=== PATIENT | female | born 2000 | race Caucasian/White ===

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

== ENCOUNTER 2019-01-13 18:39 | Emergency (ER) | payer SELFPAY ==
--- OUTSIDE RECORDS SUMMARY | 2019-01-13 18:53 | XMS REPORT | Continuity of Care Document ---
:2000 Author Organization [facility] Address [address], [place] [id number] Phone Care Team Providers Name Role Phone Catalina Burgess NP Unavailable Unavailable Allergies, Adverse Reactions, Alerts Substance Reaction Status No Known Allergies Active Medications Medication Instructions Dosage Effective Dates Status Comments (start - stop) Depo-Provera 150 IM Q 11-13 weeks - Active mg/mL intramuscular suspension DEPO-PROVERA Not Available - No Longer (unknown strength) Active Problems Condition Effective Dates (start - Clinical Status Comments stop) Encounter for oth general cnsl and - advice on contraception Human immunodeficiency virus [HIV] - counseling Encounter for test, result negative Encntr screen for infections w sexl mode of transmiss Encounter for initial prescription of injectable contracep Procedures Procedure Date PREVENTIVE COUNSELING, Under 8 Minutes URINE TEST N.GONORRHOEAE, DNA, AMP PROB CHYLMD DNA, AMP PROBE OFFICE/OUTPATIENT VISIT, NEW INJECTION DEPO/CEFTRIAXONE BLOOD PRESSURE Height/Weight OTHER Medical Services Contraceptive Director Audience Marketing.Svc. Other Director Audience Marketing.Svc. STI DEPO Results Test Name Date and Time Measure Units Reference Range Abnormal Flag Status Comments Panel Description: C trach DNA XXX Ql PCR Final Urine CT/GC Negative N Final Performed Combo - CT 00:00:00 by:
&emsp;&ensp;CDD ([id number])

Panel Description: Amplified GC - Urine Final Urine CT/GC Negative N Final : No

Performed Combo - GC 00:00:00 by:
&emsp;&ensp;CDD ([id number])

Panel Description: High Sensitivity Urine Test Final High Sensitivity Urine 13:18:20 NegativeInternal Quality Final Test Control: Positive Advance Directives Directive Yes / No Effective Date File Name No information Encounters Encounter Practice Location Reason(s) Diagnoses Date Provider Providers Description For Visit Copied on Encounter OFFICE/OUTPA [facility] Referring TIENT VISIT, [facility] [place] Control immunodeficiency . Provider: [facility] Consult virus [HIV] [address] (chief counselingEncounter [facility], [facility], [address]) for oth general [address], [address] [place] cnsl and advice on [place], [address], [place], [place], [place], [place], [place] [address]. [place], [address]. [id number], test, result tel:+ tel:+60 negativeEncntr [id number] tel:+ screen for [id number] infections w sexl mode of transmissEncounter for initial prescription of injectable contracep Family History Family Member Diagnosis Age At Onset 1st degree relative No hx of venous thromboembolism 1st degree relative No hx of cancer of breast, colon, endometrium or ovary 1st degree relative No hx of coronary heart disease (female <65, male <55) 1st degree relative No hx of osteoporosis Immunizations Vaccine Date Status Comments No information Payers Payer name Insurance type Covered republican ID Authorization(s) FPBP PRESUMPTIVE ELIGIBILITY [id number] Social History Type Description Quantity Date Captured Comments Alcohol Use Details Unknown Caffeine Use Details Unknown Tobacco Use Status Current non-smoker Smoking Status Never smoker Non-Smoking Tobacco : No Details Available : No Details Available 2018 Use Details Sex Female Vital Signs Date / Height Weight BMI Pulse Blood Temperature Respiratory Body Head BMI Pulse Inhaled Time: Rate Pressure Rate Surface Circumference percentile Ox Ox Area 64.00 172.00 29.5 110/72 in lbs 2 mm[Hg] 1:05 kg/m PM eter (2) Chief Complaint And Reason For Visit Most recent encounter only, dated '11/28/2018 12:50'. Control Consult (chief complaint) Reason For Referral Reason For Referral No information Plan Of Treatment Date Type Action Status No information History Of Present Illness Encounter Date Complaint History Of Present Illness No information Functional Status Date Functional Assessment No information Medications Administered Medication Instructions Dosage Effective Dates (start - stop) Status Comments No information Instructions Date Instruction Additional Information No information Assessments Type Assessment Date assessment Human immunodeficiency virus [HIV] counseling assessment Encounter for oth general cnsl and advice on contraception 2018 assessment Encounter for test, result negative assessment Encntr screen for infections w sexl mode of transmiss assessment Encounter for initial prescription of injectable contracep 2018 Goals Health Concern Goal Type Priority Status Date No information Medical Equipment Description Device [place] Device Identifier Effective Dates (start - stop ) Status No information Mental Status Date Cognitive Assessment No information Health Concerns Observation Date No information Concern Status Date No information
--- NOTE | 2019-01-13 21:23 | ED ---
GI/ HPI - HPI Summary HPI Summary: The patient is a 18 y/o F presenting to [facility] with a chief complaint of dysuria for the last 6 months accompanied by constant suprapubic pain. She reports that two years ago she had a UTI that was treated with OTC medications, and her symptoms resolved. Then six months ago, her symptoms returned with pain with urination and abdominal pain. She did not see anyone for her symptoms, but they have been worsening since then. Currently, her symptoms are rated 7/10 in severity. She denies any fever, chills, nausea, vomiting, vaginal bleeding or discharge, or change in stool. LNMP: one year ago (on Depo shot, hasn't missed any doses). No PMHx. Nonsmoker, no EtOH, no substance use. Medications reviewed. Allergies noted. - History of Current Complaint Chief Complaint: EDUrogenitalProblems Time Seen by Provider: 01/13/19 21:15 Stated Complaint: STOMACH PAINS PER PT Hx Obtained From: Patient Hx Last Menstrual Period: one year ago (Depo shot) Onset/Duration: Started Weeks Ago - 6 months, Still Present Timing: Constant, Lasting Weeks - 6 months Severity: Moderate Current Severity: Severe Pain Intensity: 7 Location of Pain: Suprapubic Pain Characteristics: Sharp Associated Signs and Symptoms: Positive: Dysuria, Abdominal Pain - suprapubic, Other: - Negative: change in stool. Negative: Nausea, Vomiting, Fever, Chills Additional Signs & Symptoms: Negative: Vaginal Bleeding, Vaginal Discharge Aggravating Factor(s): Nothing Alleviating Factor(s): Nothing - Allergy/Home Medications Allergies/Adverse Reactions: Allergies Allergy/AdvReac Type Severity Reaction Status Date / Time No Known Allergies Allergy Verified 01/13/19 18:44 PMH/Surg Hx/FS Hx/Imm Hx Respiratory History: Denies: Hx Asthma History: Reports: Other Problems/Disorders - recurrent UTIs Sensory History: Denies: Hx Deafness Opthamlomology History: Denies: Hx Legally Blind EENT History: Denies: Hx Deafness - Surgical History Surgical History: None Surgery Procedure, Year, and Place: none Infectious Disease History: No Infectious Disease History: Denies: Traveled Outside the [place] in Last 30 Days - Family History Known Family History: Negative: Hypertension, Diabetes - Social History Alcohol Use: None Hx Substance Use: No Substance Use Type: Reports: None Hx Tobacco Use: No Smoking Status (MU): Never Smoked Tobacco Review of Systems Negative: Fever, Chills Positive: Abdominal Pain - suprapubic. Negative: Vomiting, Nausea Positive: dysuria, other - Negative: vaginal bleeding. Negative: discharge All Other Systems Reviewed And Are Negative: Yes Physical Exam - Summary Physical Exam Summary: Appearance: Well-appearing, Well-nourished, lying in bed comfortably Skin: Warm, dry, no obvious rash Eyes: sclera anicteric, no conjunctival pallor ENT: mucous membranes moist, pharynx appears normal Neck: Supple, nontender Respiratory: Clear to auscultation, no signs of respiratory distress Cardiovascular: Normal S1, S2. No murmurs. Normal distal pulses in tibial and radial bilaterally. Abdomen: Soft, nontender, normal active bowel sounds present Musculoskeletal: Normal, Strength/ROM Intact Neurological: A&Ox3, awake and alert, mentation is normal, speech is fluent and appropriate Psychiatric: affect is normal, does not appear anxious or depressed Triage Information Reviewed: Yes Vital Signs On Initial Exam: Initial Vitals Temp Pulse Resp BP Pulse Ox 99.8 F 89 16 120/83 98 01/13/19 18:42 01/13/19 18:42 01/13/19 18:42 01/13/19 18:42 01/13/19 18:42 Vital Signs Reviewed: Yes Diagnostics - Vital Signs Vital Signs Temp Pulse Resp BP Pulse Ox 01/13/19 21:02 81 99 01/13/19 21:01 78 117/90 99 01/13/19 20:54 100.2 F 16 01/13/19 18:42 99.8 F 89 16 120/83 98 - Laboratory Result Diagrams: 01/13/19 21:33 01/13/19 21:33 Lab Statement: Any lab studies that have been ordered have been reviewed, and results considered in the medical decision making process. - Ultrasound Transvaginal US Ultrasound Interpretation Completed By: Radiologist Summary of Ultrasound Findings: Impression: Negative pelvic sonogram. Normal bilateral ovarian blood flow is noted. ED physician has reviewed this report. Re-Evaluation - Re-Evaluation First Eval Re-Evaluation Time: 23:35 Comment: We discussed all results and plan for discharge home. GIGU Course/Dx - Course Course Of Treatment: Pt is a 18 y/o F with cc of dysuria and suprapubic pain beginning 6 months ago with dx of UTI last 2 years ago with OTC medication treatment without any treatment since onset. Denies fevers, chills, vaginal bleeding or discharge, change in stool, nausea, or vomiting. Upon physical exam , the pt exhibits no acute abnormalities. Blood work without significant abnormalities. UA consistent with infection with 1+ blood, 2+ leukocyte esterase , 3+ WBCs, and presence of squamous epithelial cells. In the ED course, the pt was administered Bactrim to start course to treat dx of UTI. Transvaginal US impression is negative. We discussed all results and plan for discharge with rx for Bactrim and [facility]. She understands and agrees with this plan. Dx of UTI and chronic pelvic pain. - Diagnoses Provider Diagnoses: UTI (urinary tract infection), Chronic pelvic pain in female Discharge ED - Sign-Out/Discharge Documenting (check all that apply): Patient Departure - Patient will be discharged home. Patient Received Moderate/Deep Sedation with Procedure: No - Discharge Plan Condition: Stable Disposition: HOME Prescriptions: Sulfamethox/Trimethoprim DS* [Bactrim DS 800/160 TAB*] 1 tab PO BID #20 tab Patient Education Materials: Urinary Tract Infection in Women (ED), Pelvic Pain in Women (ED) Referrals: [facility] [Outside] - 1 Week - Billing Disposition and Condition Condition: STABLE Disposition: Home - Attestation Statements Document Initiated by Marco A: Yes Documenting Scribe: Nancy Martinez Provider For Whom Marco A is Documenting (Include Credential): Dr. Eduardo Hyman MD Scribe Attestation: Nancy Mistry scribed for Dr. Eduardo Hyman MD on 01/15/19 at 0458. Scribe Documentation Reviewed: Yes Provider Attestation: The documentation as recorded by the Nancy arias accurately reflects the service I personally performed and the decisions made by me, Dr. Eduardo Hyman MD Status of Scrpenny Document: Viewed
[2019-01-13 21:24] LABS: Urine Appearance Cloudy; Urine Bacteria Absent (Absent); Urine Bilirubin Negative (Negative); Urine Blood 1+ (Negative); Urine Color Yellow; Urine Glucose Negative (Negative); Urine Ketones Negative (Negative); Urine Nitrite Negative (Negative); Urine Protein Negative (Negative); Urine Red Blood Cell Trace(0-2/hpf) (Absent); Urine Specific Gravity 1.025 (1.010-1.030); Urine Squamous Epithelial Cell Present (Absent); Urine Urobilinogen Negative (Negative); Urine White Blood Cell 3+(>20/hpf) (Absent)
[2019-01-13 21:47] LABS: ABS Basophils 0.1 10^3/ul (0-0.2); ABS Eosinophils 0.2 10^3/ul (0-0.6); ABS Lymphocytes 3.2 10^3/ul (1.0-4.8); ABS Neutrophils 4.2 10^3/ul (1.5-7.7); Eosinophil % 2.1 %; Hematocrit 40 % (35-47); Hemoglobin 13.4 g/dL (12.0-16.0); Lymphocyte % 37.4 %; Mean Corpuscular HGB Conc 34 g/dL (31-36); Mean Corpuscular Hemoglobin 29 pg (27-31); Mean Corpuscular Volume 87 fL (80-97); Mean Platelet Volume 8.4 fL (7.4-10.4); Nucleated Red Blood Cells % 0.1; Platelet Count 339 10^3/uL (150-450); Red Blood Count 4.56 10^6 /uL (3.70-4.87); Red Cell Distribution Width 14 % (10-15); White Blood Count 8.6 10^3/uL (3.5-10.8)
[2019-01-13 22:03] LABS: ALT 15 U/L (7-52); AST 15 U/L (13-39); Albumin 4.3 g/dL (3.2-5.2); Albumin/Globulin Ratio 1.7 (1-3); Alkaline Phosphatase 56 U/L (34-104); Anion Gap 5 mmol/L (2-11); BUN/Creatinine Ratio 11.6 (8-20); Blood Urea Nitrogen 11 mg/dL (6-24); CO2 Carbon Dioxide 26 mmol/L (22-32); Chloride 107 mmol/L (101-111); EGFR African American 91.7 (>60); EGFR Non-African American 75.8 (>60); Globulin 2.6 g/dL (2-4); Glucose 91 mg/dL (70-100); Potassium 3.5 mmol/L (3.5-5.0); Sodium 138 mmol/L (135-145); Total Protein 6.9 g/dL (6.4-8.9)
[2019-01-13 22:10] LABS: HCG Pregnancy < 0.60 mIU/mL
[2019-01-13] MEDS ORDERED: Sulfamethox/Trimethoprim DS 800/160* TAB PO ONE (22:39)
[2019-01-13 23:48] VITALS: BP 112/79
[2019-01-15 13:32] LABS: Chlamydia trachomatis NAA Negative (Negative); Neisseria gonorrhoeae (GC) NAA Negative (Negative)
--- NOTE | 2019-01-16 05:44 | PN ---
Progress Note - Progress Note Date of Service: 01/13/19 Note: Urine culture final grew Escherichia coli 50-75,000 Patient was placed on Bactrim prior to discharge This is sensitive to organism Nothing further at this time
== END 2019-01-13 23:45 | disposition home or self-care (01) ==
LOC: ED 18:39
DX: N39.0 Urinary tract infection, site not specified (principal); R10.2 Pelvic and perineal pain; G89.29 Other chronic pain
CPT/HCPCS: 36415; 76830; 80053; 81003; 81015; 84702; 85025; 87077; 87086; 87186; 87491; 87591; 99283; A9270-GY

== ENCOUNTER 2020-05-21 00:37 | Inpatient (IN) ==
[2020-05-21] MEDS: Lactated Ringers 1000 ml BAG 1,000 ML IV ONE ×3 (02:32→05:33)
[2020-05-21 02:51] LABS: ABS Basophils 0.1 10^3/ul (0-0.2); ABS Eosinophils 0.1 10^3/ul (0-0.6); ABS Lymphocytes 2.3 10^3/ul (1.0-4.8); ABS Monocytes 1.2 10^3/ul (0-0.8); ABS Neutrophils 11.4 10^3/ul (1.5-7.7); Eosinophil % 0.5 %; Hematocrit 33 % (35-47); Hemoglobin 10.7 g/dL (12.0-16.0); Lymphocyte % 15.5 %; Mean Corpuscular HGB Conc 33 g/dL (31-36); Mean Corpuscular Hemoglobin 27 pg (27-31); Mean Corpuscular Volume 82 fL (80-97); Mean Platelet Volume 9.6 fL (7.4-10.4); Platelet Count 335 10^3/uL (150-450); Red Blood Count 3.99 10^6 /uL (3.70-4.87); Red Cell Distribution Width 14 % (10-15); White Blood Count 15.1 10^3/uL (3.5-10.8)
[2020-05-21 03:06] LABS: Urine Benzodiazepine Screen None Detected (None Detect); Urine Cannabinoids Screen None Detected (None Detect); Urine Opiates Screen None Detected (None Detect)
[2020-05-21] MEDS ORDERED: OBEPIDURAL 250 ML EPIDURAL ONE (04:45)
[2020-05-21] MEDS ORDERED: Phenylephrine 40 mcg/mL 10mL (400mcg) SYRINGE IV PUSH PRN ×2 (05:40)
[2020-05-21] MEDS ORDERED: EPHEDrine (Pressors) 50 MG/ML VIAL IV PUSH PRN ×2 (05:40)
[2020-05-21] MEDS ORDERED: Sodium Citrate/Citric Acid LIQ 15 ML UDC PO PRN (05:40)
[2020-05-21] MEDS ORDERED: Lactated Ringers 1000 ml BAG 1,000 ML IV ONE (05:40)
[2020-05-21] MEDS ORDERED: OBEPIDURAL 250 ML EPIDURAL SCH (06:00)
[2020-05-21] MEDS ORDERED: Lactated Ringers 1000 ml BAG 1,000 ML IV SCH (06:00)
[2020-05-21] MEDS ORDERED: Oxytocin in LR 20 UNITS/1,000 ML BAG IVPB SCH ×2 (06:30→10:00)
[2020-05-21] MEDS ORDERED: Witch Hazel PAD JAR TOPICAL PRN (09:22)
[2020-05-21] MEDS ORDERED: Glycerin ADULT 2.4 gm SUPP PR PRN (09:22)
[2020-05-21] MEDS ORDERED: Dibucaine 1% OINT 28.35 GM TUBE PR PRN (09:22)
[2020-05-21] MEDS ORDERED: Lidocaine 1% VIAL 10 MG/ML VIAL ONE (14:00)
[2020-05-21] MEDS ORDERED: Phenylephrine IV 10 MG/ML 1 ml VIAL ONE (18:46)
[2020-05-21] MEDS ORDERED: Phenylephrine 40 mcg/mL 10mL (400mcg) SYRINGE ONE (18:47)
[2020-05-22 07:48] LABS: ABS Basophils 0.1 10^3/ul (0-0.2); ABS Eosinophils 0.1 10^3/ul (0-0.6); ABS Lymphocytes 3.4 10^3/ul (1.0-4.8); ABS Monocytes 1.2 10^3/ul (0-0.8); ABS Neutrophils 8.6 10^3/ul (1.5-7.7); Hematocrit 31 % (35-47); Lymphocyte % 25.6 %; Mean Corpuscular HGB Conc 32 g/dL (31-36); Mean Corpuscular Hemoglobin 27 pg (27-31); Mean Corpuscular Volume 82 fL (80-97); Mean Platelet Volume 8.8 fL (7.4-10.4); Platelet Count 301 10^3/uL (150-450); Red Blood Count 3.77 10^6 /uL (3.70-4.87); Red Cell Distribution Width 14 % (10-15); White Blood Count 13.4 10^3/uL (3.5-10.8)
[2020-05-22 08:46] VITALS: BP 108/71
[2020-05-22] MEDS ORDERED: Measles, Mumps,Rubella VACC 0.5 ML/VIAL SUBCUT ONE ×2 (09:00→13:00)
== END 2020-05-22 15:10 | disposition home or self-care (01) | DRG 560 ==
LOC: MCHOBOUT 00:37 → MCHOB 02:12
PROVIDERS: ADMIT Midwife; ATTEND Midwife